=== PATIENT | male | born 1970 | race Caucasian/White ===

== ENCOUNTER 2021-09-12 20:49 | Emergency (ER) | payer SELFPAY ==
[2021-09-12] MEDS ORDERED: HYDROMORPHONE HCL 2 MG/ML inj ONE (21:31)
[2021-09-12] MEDS ORDERED: NA CHLORIDE 0.9% 100 ML ONE ×2 (21:31→22:06)
[2021-09-12] MEDS ORDERED: TETANUS & DIPHTHERIA TOX,ADULT 0.5 ML VIAL ONE (21:32)
--- NOTE | 2021-09-12 22:01 | RAD REPORT ---
EXAM DESCRIPTION: RAD - Foot Left 3 View - 09/12/2021 9:55 pm CLINICAL HISTORY: stingray sting Animal bite COMPARISON: No comparisons FINDINGS: Small calcaneal spurs. No fracture or radiopaque foreign body is seen.
[2021-09-12] MEDS ORDERED: METHOCARBAMOL 1,000 MG/10 ML VIAL IV ONE (22:06)
--- NOTE | 2021-09-12 22:24 | EDPHYS ---
Physician Documentation [facility] Name: José Alarcon Age: 50 yrs Sex: Male : 1970 Arrival Date: 09/12/2021 Time: 20:50 Bed 1 Private MD: ED Physician Kip Knox HPI: 09/13 06:12 This 50 yrs old Male presents to ER via EMS with complaints of Foot Injury. kdr 06:12 The patient presents with a laceration, pain, that is acute, a puncture wound, Possible kdr stingray garry puncture. Historical: - Allergies: 09/12 20:54 NKDA; bh1 - Home Meds: 20:54 tramadol 100 mg Oral tab 1 tab every 6 hours [Active]; meloxicam 15 mg oral TbDi 1 tab bh1 once daily [Active]; gabapentin 300 mg oral Tb24 1 tab once daily [Active]; pantoprazole 20 mg oral TbEC 1 tab once daily [Active]; rosuvastatin 5 mg oral tab 1 tab once daily [Active]; - PMHx: 20:54 high cholesterol; cervical disc; gerd; bh1 - PSHx: 20:54 right wrist surgery; shoulder scope; 1 - Immunization history:: Adult Immunizations not up to date. - Social history:: Smoking status: Patient denies any tobacco usage or history of. ROS: 09/13 06:13 MS/extremity: Positive for injury or acute deformity, pain, puncture, swelling, kdr tenderness, of the heel of left foot. 06:15 Constitutional: Negative for fever, chills, and weight loss, Eyes: Negative for injury, kdr pain, redness, and discharge, Cardiovascular: Negative for chest pain, palpitations, and edema. Exam: 06:13 Constitutional: This is a well developed, well nourished patient who is awake, alert, kdr and in no acute distress. 06:13 Skin: injury, puncture(s), that are superficial, that are deep, of the heel of left foot. Vital Signs: 09/12 20:51 BP 134 / 86; Pulse 114; Resp 16; Temp 97.9; Pulse Ox 95% on R/A; Weight 154.22 kg; bh1 Height 6 ft. 9 in. (205.74 cm); Pain 10/10; 22:50 BP 111 / 77; Pulse 88; Resp 18; Temp 97.9(O); Pulse Ox 97% on R/A; wm 20:51 Body Mass Index 36.43 (154.22 kg, 205.74 cm) bh1 MDM: 22:23 Patient medically screened. kdr 09/13 06:13 Data reviewed: vital signs, nurses notes, lab test result(s), radiologic studies, plain kdr films. Counseling: I had a detailed discussion with the patient and/or guardian regarding: the historical points, exam findings, and any diagnostic results supporting the discharge/admit diagnosis, lab results, radiology results, to return to the emergency department if symptoms worsen or persist or if there are any questions or concerns that arise at home. 09/12 21:11 Order name: Foot Left 3 View XRAY; Complete Time: 22:16 kdr 09/12 22:21 Order name: [facility]. Order: And dress wound on bottom of foot. 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 Exp: bb 05/12/2023. Lot #: [id number]. } Route: IM; Site: right deltoid; 22:28 Follow up: Response: No adverse reaction bb 21:34 Drug: Dilaudid (HYDROmorphone) 2 mg Route: IVP; Site: left antecubital; bb 22:29 Follow up: Response: Pain is decreased bb 21:36 Drug: Robaxin (methocarbamol) 1 grams Route: IVPB; Infused Over: 1 hrs; Site: left bb antecubital; 22:44 Follow up: IV Status: Completed infusion; IV Intake: 100ml bb 22:44 Drug: Doxycycline 100 mg Route: PO; bb 23:00 Follow up: Response: No adverse reaction bb 22:44 Drug: [place] (HYDROcodone-acetaminophen) 10 mg-325 mg 1 tabs Route: PO; bb 23:00 Follow up: Response: No adverse reaction bb 22:44 Drug: Zofran (Ondansetron) 4 mg Route: IVP; Site: left antecubital; bb 23:00 Follow up: Response: No adverse reaction bb Disposition Summary: 09/12/21 22:23 Discharge Ordered Location: Home kdr Problem: new kdr Symptoms: have improved kdr Condition: Stable kdr Diagnosis - Pain in left foot - bottm of heel kdr Followup: kdr - With: Private Physician - When: 2 - 3 days - Reason: If symptoms return, Further diagnostic work-up, Recheck today's complaints, Continuance of care, Re-evaluation by your physician Discharge Instructions: - Discharge Summary Sheet kdr - Musculoskeletal Pain kdr Forms: - Medication Reconciliation Form kdr - Thank You Letter kdr - Antibiotic Education kdr - Prescription Opioid Use kdr Prescriptions: - Zofran 4 mg Oral Tablet - take 1 tablet by ORAL route every 4-6 hours As needed; 12 tablet; Refills: 0, kdr Product Selection Permitted - Doxycycline Monohydrate 100 mg Oral Tablet - take 1 tablet by ORAL route every 12 hours for 10 days; 20 tablet; Refills: 0, kdr Product Selection Permitted - Tylenol-Codeine #3 300 mg-30 mg Oral - take 2 tablet by ORAL route every 4-6 hours As needed; 12 tablet; Refills: 0, kdr Product Selection Permitted Signatures: Dispatcher [employer] Kip Garcia MD MD kdr Radha Cortes, RN RN bb Jennifer Mclaughlin RN RN bh1
--- NOTE | 2021-09-12 22:24 | ER ---
Nurse's Notes [facility] Name: José Alarcon Age: 50 yrs Sex: Male : 1970 Arrival Date: 09/12/2021 Time: 20:50 Bed 1 Private MD: Diagnosis: Pain in left foot-bottm of heel Presentation: 09/12 20:51 Chief complaint: Patient states: sting ray sting to left foot 1.5 hours. Coronavirus located within [facility] screen: Vaccine status: Patient reports receiving the 2nd dose of the covid vaccine. Ebola Screen: Patient negative for fever greater than or equal to 101.5 degrees Fahrenheit, and additional compatible Ebola Virus Disease symptoms. Initial Sepsis Screen: Does the patient meet any 2 criteria? No. Patient's initial sepsis screen is negative. Does the patient have a suspected source of infection? No. Patient's initial sepsis screen is negative. Risk Assessment: Do you want to hurt yourself or someone else? Patient reports no desire to harm self or others. Onset of symptoms was September 12, 2021. 20:51 Method Of Arrival: EMS: [facility] located within [facility] 20:51 Acuity: YOLETTE 3 located within [facility] Triage Assessment: 20:57 General: Appears in no apparent distress. uncomfortable, Behavior is cooperative, located within [facility] appropriate for age, anxious. Pain: Complains of pain in left foot. Historical: - Allergies: 20:54 NKDA; located within [facility] - Home Meds: 20:54 tramadol 100 mg Oral tab 1 tab every 6 hours [Active]; meloxicam 15 mg oral TbDi 1 tab bh1 once daily [Active]; gabapentin 300 mg oral Tb24 1 tab once daily [Active]; pantoprazole 20 mg oral TbEC 1 tab once daily [Active]; rosuvastatin 5 mg oral tab 1 tab once daily [Active]; - PMHx: 20:54 high cholesterol; cervical disc; gerd; located within [facility] - PSHx: 20:54 right wrist surgery; shoulder scope; located within [facility] - Immunization history:: Adult Immunizations not up to date. - Social history:: Smoking status: Patient denies any tobacco usage or history of. Screenin:15 Abuse screen: Denies threats or abuse. Nutritional screening: No deficits noted. bb Tuberculosis screening: No symptoms or risk factors identified. Fall Risk None identified. Assessment: 21:15 General: Appears in no apparent distress. uncomfortable, Behavior is calm, cooperative. bb Pain: Complains of pain in left foot. Neuro: Level of Consciousness is awake, alert, obeys commands, Oriented to person, place, time, situation. Cardiovascular: No deficits noted. Respiratory: Respiratory effort is even, unlabored. GI: No signs and/or symptoms were reported involving the gastrointestinal system. Derm: Skin is pink, warm \T\ dry. Musculoskeletal: Circulation, motion, and sensation intact. Reports pain in left foot. 22:59 Reassessment: Patient is alert, oriented x 3, equal unlabored respirations, skin bb warm/dry/pink. pt verbalized understanding of and agrees to plan of care discharge instructions given pt ambulated to exit accompanied by family Patient states feeling better. Vital Signs: 20:51 BP 134 / 86; Pulse 114; Resp 16; Temp 97.9; Pulse Ox 95% on R/A; Weight 154.22 kg; 1 Height 6 ft. 9 in. (205.74 cm); Pain 10/10; 22:50 BP 111 / 77; Pulse 88; Resp 18; Temp 97.9(O); Pulse Ox 97% on R/A; wm 20:51 Body Mass Index 36.43 (154.22 kg, 205.74 cm) 1 ED Course: 20:50 Patient arrived in ED. bp1 20:54 Triage completed. bh1 20:57 Arm band placed on right wrist. bh1 21:10 Kip Knox MD is Attending Physician. kdr 21:14 Radha Cortes RN is Primary Nurse. bb 21:15 Patient has correct armband on for positive identification. bb 21:15 Maintain EMS IV. Gauge \T\ site: 20 g L AC. bb 21:57 Foot Left 3 View XRAY In Process Unspecified. EDMS 23:00 Wound care: to stingray puncture wound located on left foot was cleaned with with bb normal saline, dressed with Neosporin, band aid, covered with sock. 23:01 No provider procedures requiring assistance completed. IV discontinued, intact, bb bleeding controlled, No redness/swelling at site. Pressure dressing applied. 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 Exp: bb 05/12/2023. Lot #: [id number]. } Route: IM; Site: right deltoid; 22:28 Follow up: Response: No adverse reaction bb 21:34 Drug: Dilaudid (HYDROmorphone) 2 mg Route: IVP; Site: left antecubital; bb 22:29 Follow up: Response: Pain is decreased bb 21:36 Drug: Robaxin (methocarbamol) 1 grams Route: IVPB; Infused Over: 1 hrs; Site: left bb antecubital; 22:44 Follow up: IV Status: Completed infusion; IV Intake: 100ml bb :44 Drug: Doxycycline 100 mg Route: PO; bb 23:00 Follow up: Response: No adverse reaction bb 22:44 Drug: [place] (HYDROcodone-acetaminophen) 10 mg-325 mg 1 tabs Route: PO; bb 23:00 Follow up: Response: No adverse reaction bb 22:44 Drug: Zofran (Ondansetron) 4 mg Route: IVP; Site: left antecubital; bb 23:00 Follow up: Response: No adverse reaction bb Medication: 21:34 Vaccine Information Statement (VIS) provided today. Questions and/or concerns bb addressed. VIS edition date: September 22, 2020. Intake: 22:44 IV: 100ml; Total: 100ml. bb Outcome: 22:23 Discharge ordered by . kdr 23:01 Discharged to home ambulatory, with family. bb 23:01 Condition: stable 23:01 Discharge instructions given to patient, Instructed on discharge instructions, follow up and referral plans. medication usage, Demonstrated understanding of instructions, follow-up care, medications, wound care, Prescriptions given X 3. 23:02 Patient left the ED. bb Signatures: Dispatcher [employer] EDMS Kip Knox MD MD kdr Ballard, Brenda, RN RN bb Bhavani Londono Wendy wm Hicks, Barbara, RN RN located within [facility]
[2021-09-12] MEDS ORDERED: HYDROCODONE/APAP 10/325 TAB ONE (22:49)
[2021-09-12] MEDS ORDERED: DOXYCYCLINE 100 MG CAP PO ONE (22:49)
[2021-09-12] MEDS ORDERED: ONDANSETRON 4 MG/2 ML VIAL ONE (22:54)
[2021-09-13 00:59] VITALS: TEMP 97.9
[2021-09-13 01:02] VITALS: BP 111/77; O2SAT 97
== END 2021-09-12 23:02 | disposition home or self-care (01) ==
LOC: ER 20:49
DX: S91.332A Puncture wound without foreign body, left foot, initial encounter (principal); E78.00 Pure hypercholesterolemia, unspecified; K21.9 Gastro-esophageal reflux disease without esophagitis; Z23 Encounter for immunization
CPT/HCPCS: 90471; 90714; 96365; 96375; 99284; J1170; J2405; J2800